=== PATIENT | female | born 1990 | race Caucasian/White ===

== ENCOUNTER 2019-04-28 17:17 | Emergency (ER) | payer SELFPAY ==
[2019-04-28 17:26] VITALS: BP 134/81; PULSE 88; RESP 16; TEMP 36.4; O2SAT 100; BMI 20.9
--- NOTE | 2019-04-28 17:54 | CTR_ITS ---
PROCEDURE INFORMATION: Exam: CT Head Without Contrast Exam date and time: 04/28/2019 6:24 PM Age: 29 years old Clinical indication: Pain; Other: Tingling; Headache TECHNIQUE: Imaging protocol: Computed tomography of the head without contrast. Total DLP: 761.13 mGy-cm Radiation optimization: All CT scans at this facility use at least one of these dose optimization techniques: automated exposure control; mA and/or kV adjustment per patient size (includes targeted exams where dose is matched to clinical indication); or iterative reconstruction. COMPARISON: No relevant prior studies available. FINDINGS: Brain: There is no evidence of infarct, cunningham-white matter differentiation is preserved. There is no hemorrhage or extra-axial collection. There is no mass. No evidence of subarachnoid hemorrhage. Ventricles: There is no hydrocephalus. Bones/joints: Series 3, image 42, well-defined 14 mm lucency in the left lateral calvarium. The appearance is nonspecific. The well-defined appearance indicates likely benign etiology such as epidermoid. No fracture. Sinuses: Visualized sinuses are unremarkable. No fluid levels. Mastoid air cells: Visualized mastoid air cells are well aerated. Soft tissues: Unremarkable. CT/CT head wo con* [id number] IMPRESSION: No intracranial lesion or injury. Radiation Dose CTDIVOL = (mGy): DLP = 761.13 (mGy-cm)
--- NOTE | 2019-04-28 17:55 | W.ED.HA ---
HPI - Headache General: Chief Complaint: Headache Stated Complaint: Headache,tinglling Time Seen by Provider: 04/28/19 17:39 History of Present Illness: HPI Narrative: Patient reports having a severe headache yesterday and then suddenly got tingly and very anxious late yesterday evening. Patient went to the ER in [place] and was evaluated and treated with Ativan for her anxiety. Patient denied any use of medications or drugs. Patient was given oxycodone last night and Ativan for her headache and anxiety at the emergency room in [place]. Patient appears anxious. Patient appears in mild to no pain. Patient denies any routine medications or medical problems. Patient denies depression or anxiety. Review of Systems General: Reports: 10 or more systems reviewed and unremarkable except in HPI and below Neuro: Reports: headache Psych: Reports: anxiety PFSH ED PFSH: Statuses (acute, chronic, etc) shown below reflect problem list status as previously entered and may not be historically accurate Social History Smoking and tobacco status: former smoker Female Reproductive History: Date of last menstrual period: 04/27/19 Physical Exam Const: COMMON NORMALS: no apparent distress and oriented x3 GENERAL APPEARANCE: cooperative HENMT: COMMON NORMALS: normocephalic, external ears normal, EAC's normal, TM's normal bilaterally and external nose normal HEAD & SCALP: normal to inspection and normocephalic FACE & SINUS: normal facial exam NOSE: external nose normal GENERAL EAR: hearing not grossly impaired EXTERNAL EAR: Yes external ears normal EXTERNAL AUDITORY CANAL: EAC's normal TYMPANIC MEMBRANE: TM's normal bilaterally MOUTH: oral and palatal mucosa normal THROAT: posterior oropharynx normal Eye: COMMON NORMALS: PERRL and EOMs intact bilaterally PUPIL: Yes PERRL Neck/C-Spine: COMMON NORMALS: full ROM and no lymphadenopathy Lymph: LYMPHATIC: no lymphedema noted Chest: COMMONS NORMALS: inspection of chest normal and palpation of chest normal Resp: COMMON NORMALS: normal respiratory effort and clear to auscultation bilaterally AUSCULTATION: clear to auscultation bilaterally Cardio: COMMON NORMALS: regular rate and regular rhythm RATE: regular rate RHYTHM: regular rhythm GI: COMMON NORMALS: normal to inspection, nondistended, normoactive bowel sounds and non-tender : COMMON NORMALS: Yes no CVA tenderness BLADDER/KIDNEY EXAM: Yes no CVA tenderness Back/Pelvis: COMMON NORMALS: no CVA tenderness and thoracic and lumbar spine normal to inspection Extremity: COMMON NORMALS: normal to inspection GENERAL: No edema Neuro: COMMON NORMALS: oriented x3, moves all extremities and no focal motor deficits Psych: COMMON NORMALS: mental status grossly normal and cooperative Skin: COMMON NORMALS: no rashes or lesions noted GENERAL SKIN EXAM: no rashes or lesions noted Course Vital Signs: Vital signs: Vital Signs Temperature 97.5 F L 04/28/19 17:26 Pulse Rate 83 04/28/19 20:43 Respiratory Rate 16 04/28/19 20:43 Blood Pressure 111/77 04/28/19 20:43 Pulse Oximetry 98 04/28/19 20:43 MDM - Headache MDM Narrative: Medical decision making narrative: Patient comes in today for complaints of tremors and headache. Patient reports symptoms were yesterday she was seen at [place] and was diagnosed with migraine headache and possible substance use. Exam notes no physical abnormalities. Respirations are even lungs are clear to auscultation. Skin is warm dry and color is pink. Vital signs are stable. Differential diagnosis includes anxiety, depression, substance abuse, migraine headache, tension headache, subarachnoid hemorrhage. CT scan of the head was negative for any abnormalities. Laboratory values indicated no significant abnormalities. Care was released to Ford Gracia, nurse practitioner, who graciously assumed care and released patient after urinalysis and drug screen. Differential Diagnosis: Differential diagnosis headache: Likely migraine, tension headache and subarachnoid hemorrhage Lab Data: Labs: Lab Results 04/28/19 04/28/19 04/28/19 Range/Units 18:18 18:18 18:18 WBC 5.0 (4.0-10.0) 10^3/ uL RBC 4.42 (4.1-5.3) 10^6/u L Hgb 13.2 (11.5-15.3) g/dL Hct 40.5 (37.0-47.0) % MCV 91.6 (81-99) fL MCH 29.9 (28.0-34.0) pg MCHC 32.6 (30.0-36.0) g/dL RDW 11.5 L (12.1-15.1) % Plt Count 215 (130-400) 10^3/c mm MPV 12.2 H (7.4-10.4) fL Neut % (Auto) 49.6 % Lymph % (Auto) 40.9 % [place] % (Auto) 7.3 % Eos % (Auto) 1.6 % Baso % (Auto) 0.4 % Neut # (Auto) 2.5 (1.8-7.7) 10^3/u L Lymph # (Auto) 2.0 (0.8-4.8) 10^3/u L [place] # (Auto) 0.4 (0.2-0.9) 10^3/u L Eos # (Auto) 0.1 (0.0-0.8) 10^3/u L Baso # (Auto) 0.0 (0.0-0.1) 10^3/u L Nucleated RBC % (a uto) 0 % Nucleated RBCs # 0.0 /100WBC Sodium 137 (136-145) mmol/L Potassium 4.0 (3.5-5.1) mmol/L Chloride 106 (98-107) mmol/L Carbon Dioxide 20 L (22-29) mmol/L Anion Gap 15.0 (5-19) BUN 10 (6-20) mg/dL Creatinine 0.9 (0.5-0.9) mg/dL GFR Calculation 73.5 L (90-130) mL/min Glucose 101 (74-109) mg/dL Calcium 9.9 (8.5-10.5) mg/dL Total Bilirubin 0.3 (0.15-1.2) mg/dL AST 12 (0-32) U/L ALT 9 (0-33) U/L Alkaline Phosphata se 39 (35-105) IU/L Total Protein 7.6 (6.6-8.7) g/dL Albumin 4.3 (3.5-5.2) g/dL Globulin 3.3 (1.3-4.6) g/dL TSH 2.24 (0.27-4.20) uIU/ mL HCG, Qual Negative (Negative) Urine Color (Yellow) Urine Appearance (CLEAR) Urine pH (5-7) Ur Specific Gravit y (1.005-1.030) Urine Protein (Negative) Urine Glucose (UA) (Normal) Urine Ketones (Negative) Urine Occult Blood (Negative) Urine Nitrate (Negative) Urine Bilirubin (NEGATIVE) Prot Sulfosalicyli c Acd Urine Urobilinogen (Negative) mg/dL Ur Leukocyte Aury ase (Negative) Urine RBC (0-2) /hpf Urine WBC (0-5) /hpf Ur Squamous Epith Cells (0-5) Urine Bacteria (NONE) Urine Opiates Scre en (Negative) ng/mL Ur Barbiturates Sc reen (Negative) ng/mL Ur Phencyclidine S crn (Negative) ng/mL Ur Amphetamines Sc reen (Negative) ng/mL U Benzodiazepines Scrn (Negative) ng/mL Urine Cocaine Scre en (Negative) ng/mL U Marijuana (THC) Screen (Negative) ng/mL Ethyl Alcohol < 10 (0-10) mg/dL 04/28/19 04/28/19 Range/Units 18:36 18:36 WBC (4.0-10.0) 10^3/ uL RBC (4.1-5.3) 10^6/u L Hgb (11.5-15.3) g/dL Hct (37.0-47.0) % MCV (81-99) fL MCH (28.0-34.0) pg MCHC (30.0-36.0) g/dL RDW (12.1-15.1) % Plt Count (130-400) 10^3/c mm MPV (7.4-10.4) fL Neut % (Auto) % Lymph % (Auto) % [place] % (Auto) % Eos % (Auto) % Baso % (Auto) % Neut # (Auto) (1.8-7.7) 10^3/u L Lymph # (Auto) (0.8-4.8) 10^3/u L [place] # (Auto) (0.2-0.9) 10^3/u L Eos # (Auto) (0.0-0.8) 10^3/u L Baso # (Auto) (0.0-0.1) 10^3/u L Nucleated RBC % (a uto) % Nucleated RBCs # /100WBC Sodium (136-145) mmol/L Potassium (3.5-5.1) mmol/L Chloride (98-107) mmol/L Carbon Dioxide (22-29) mmol/L Anion Gap (5-19) BUN (6-20) mg/dL Creatinine (0.5-0.9) mg/dL GFR Calculation (90-130) mL/min Glucose (74-109) mg/dL Calcium (8.5-10.5) mg/dL Total Bilirubin (0.15-1.2) mg/dL AST (0-32) U/L ALT (0-33) U/L Alkaline Phosphata se (35-105) IU/L Total Protein (6.6-8.7) g/dL Albumin (3.5-5.2) g/dL Globulin (1.3-4.6) g/dL TSH (0.27-4.20) uIU/ mL HCG, Qual (Negative) Urine Color Yellow (Yellow) Urine Appearance Cloudy (CLEAR) Urine pH 8 H (5-7) Ur Specific Gravit y 1.010 (1.005-1.030) Urine Protein Neg (Negative) Urine Glucose (UA) Norm (Normal) Urine Ketones Negative (Negative) Urine Occult Blood 3+ H (Negative) Urine Nitrate Negative (Negative) Urine Bilirubin Neg (NEGATIVE) Prot Sulfosalicyli c Acd Negative Urine Urobilinogen Norm (Negative) mg/dL Ur Leukocyte Aury ase Negative (Negative) Urine RBC 15-25 H (0-2) /hpf Urine WBC 0-4 H (0-5) /hpf Ur Squamous Epith Cells 10-15 H (0-5) Urine Bacteria 1+ H (NONE) Urine Opiates Scre en Negative (Negative) ng/mL Ur Barbiturates Sc reen Negative (Negative) ng/mL Ur Phencyclidine S crn Negative (Negative) ng/mL Ur Amphetamines Sc reen Negative (Negative) ng/mL U Benzodiazepines Scrn Negative (Negative) ng/mL Urine Cocaine Scre en Negative (Negative) ng/mL U Marijuana (THC) Screen Negative (Negative) ng/mL Ethyl Alcohol (0-10) mg/dL Discharge Plan Discharge Patient Disposition: Home, Self-Care Clinical Impression: Headache Qualifiers: Headache type: other drug induced headache Intractability: intractable Qualified Code(s): G44.41 - Drug-induced headache, not elsewhere classified, intractable Condition: Stable Discharge Orders: Discharge Order (Routine); Ordered 04/28/19 Ordered By: Placido Gracia Discharge Diet: Usual diet Discharge Activity: Increase activity as tolerated Patient Instructions: Acute Delirium (ED) Activity Restrictions/Additional Instructions: Follow-up with medical provider as directed. Return to the ER or your medical provider if condition worsens. Please read and understand discharge instructions. If any questions ask please. Follow-up with Andrés if further drug testing is appropriate and desired. Discharge Date/Time: 04/28/19 20:40 Coding Level of Care Code ED [employer] Shift Manager for Steven Fwdevon Exam Problem Focused
[2019-04-28 18:26] LABS: Basophils % 0.4 %; Eosinophils # 0.1 10^3/uL (0.0-0.8); Eosinophils % 1.6 %; Hematocrit 40.5 % (37.0-47.0); Hemoglobin 13.2 g/dL (11.5-15.3); Lymphocytes % 40.9 %; Mean Corpuscular HGB Conc 32.6 g/dL (30.0-36.0); Mean Corpuscular Hemoglobin 29.9 pg (28.0-34.0); Mean Corpuscular Volume 91.6 fL (81-99); Mean Platelet Volume 12.2 fL (7.4-10.4); Monocytes # 0.4 10^3/uL (0.2-0.9); Monocytes % 7.3 %; Neutrophils # 2.5 10^3/uL (1.8-7.7); Neutrophils % 49.6 %; Nucleated Red Blood Cells % 0 %; Platelet Count 215 10^3/cmm (130-400); Red Blood Count 4.42 10^6/uL (4.1-5.3); Red Cell Distribution Width 11.5 % (12.1-15.1)
[2019-04-28 18:53] LABS: Alanine Aminotransferase 9 U/L (0-33); Albumin Level 4.3 g/dL (3.5-5.2); Alkaline Phosphatase 39 IU/L (35-105); Aspartate Amino Transferase 12 U/L (0-32); Blood Urea Nitrogen 10 mg/dL (6-20); Calcium 9.9 mg/dL (8.5-10.5); Carbon Dioxide 20 mmol/L (22-29); Chloride 106 mmol/L (98-107); Globulin 3.3 g/dL (1.3-4.6); Glomerular Filtration Rate 73.5 mL/min (90-130); Glucose 101 mg/dL (74-109); Sodium 137 mmol/L (136-145); Thyroid Stimulating Hormone 2.24 uIU/mL (0.27-4.20); Total Bilirubin 0.3 mg/dL (0.15-1.2); Total Protein 7.6 g/dL (6.6-8.7)
[2019-04-28 18:55] LABS: Alcohol Level < 10 mg/dL (0-10); HCG, Serum Qual Negative (Negative)
[2019-04-28 19:23] LABS: Urine Appearance Cloudy (CLEAR); Urine Color Yellow (Yellow); pH Urine 8 (5-7)
[2019-04-28 19:24] LABS: Bacteria Urine 1+; Bilirubin Urine Neg (NEGATIVE); Blood Urine 3+ (Negative); Glucose Urine UA Norm (Normal); Ketones Urine Negative (Negative); Leukocyte Esterase Urine Negative (Negative); Nitrate Urine Negative (Negative); Protein Urine Neg (Negative); RBC Urine 15-25 /hpf (0-2); Sulfosalicylic Acid Urine Negative; Urobilinogen Urine Norm (Negative); WBC Urine 0-4 /hpf (0-5)
[2019-04-28 19:43] LABS: Amphetamines Screen Urine Negative (Negative); Barbiturates Screen Urine Negative (Negative); Benzodiazepines Screen Urine Negative (Negative); Cocaine Screen Urine Negative (Negative); Opiate Screen Urine Negative (Negative); PCP Screen Urine Negative (Negative); THC Screen Urine Negative (Negative)
[2019-04-28 20:43] VITALS: BP 111/77; PULSE 83; RESP 16; O2SAT 98
== END 2019-04-28 20:40 | disposition home or self-care (01) ==
PROVIDERS: Emergency Provider Nurse Practitioner Family
DX: G44.41 Drug-induced headache, not elsewhere classified, intractable (principal); Z87.891 Personal history of nicotine dependence
CPT/HCPCS: 70450; 80053; 80307; 81001; 84443; 84703; 85025; 99282

== ENCOUNTER → 2021-10-21 08:54 | Outpatient (BNVA) | payer BC, MEDICAID, SELFPAY | PROVIDERS: Visit Provider Obstetrics & Gynecology | DX: Z12.4 Encounter for screening for malignant neoplasm of cervix (principal); N89.8 Other specified noninflammatory disorders of vagina | CPT/HCPCS: 87624 ==

== ENCOUNTER → 2021-11-18 10:06 | Outpatient (BNVA) | payer BC, MEDICAID, SELFPAY | PROVIDERS: Visit Provider Obstetrics & Gynecology | DX: R87.619 Unspecified abnormal cytological findings in specimens from cervix uteri (principal) | CPT/HCPCS: 88305 ==

== ENCOUNTER → 2022-05-22 16:40 | Outpatient (BNVA) | payer BC, MEDICAID, SELFPAY | PROVIDERS: Visit Provider Obstetrics & Gynecology | DX: R87.610 Atypical squamous cells of undetermined significance on cytologic smear of cervix (ASC-US) (principal); R87.810 Cervical high risk human papillomavirus (HPV) DNA test positive | CPT/HCPCS: 87624 ==

== ENCOUNTER → 2022-07-02 13:18 | Outpatient (BNVA) | payer BC, MEDICAID, SELFPAY | PROVIDERS: Visit Provider Obstetrics & Gynecology | DX: R87.619 Unspecified abnormal cytological findings in specimens from cervix uteri (principal) | CPT/HCPCS: 88305; 88342 ==

== ENCOUNTER 2022-09-22 09:45 | Outpatient (CLI) | payer BC, MEDICAID, SELFPAY ==
--- NOTE | 2022-09-22 10:00 | CT_ITS ---
WS: [id number] CT HEAD NONCONTRAST HISTORY: R51.9 - Headache, unspecified TECHNIQUE: Contiguous axial imaging performed through the brain in 2.5 mm imaging. Bone and soft tiss ue windows. Sagittal and coronal reformats reviewed. All CT scans at [facility] use at least one of these dose optimization techniques: automated exposure control; mA and/or kV adjustment per pa tient size (includes targeted exams where dose is matched to clinical indication); or iterative recon struction. DLP: 952.86 mGy.cm COMPARISON: 04/28/2019 No acute intracranial hemorrhage, midline shift or mass effect. No atrophy or prior infarcts or herniation. Ventricles: Normal size with no hydrocephalus. Paranasal sinuses: As visualized are clear. Mastoid air cells: Well pneumatized. Calvarium and scalp: Skull is intact with no soft tissue edema or swelling. CT/CT head wo con* [id number] IMPRESSION: Negative head CT.
== END 2022-09-22 09:46 | disposition home or self-care (01) ==
LOC: RAD 09:48
PROVIDERS: PCP Registered Nurse; Visit Provider Registered Nurse
DX: R51.9 Headache, unspecified (principal)
CPT/HCPCS: 70450

== ENCOUNTER → 2022-10-01 10:08 | Outpatient (BNVA) | payer BC, MEDICAID, SELFPAY | PROVIDERS: PCP Registered Nurse; Visit Provider Registered Nurse | DX: R51.9 Headache, unspecified (principal) | CPT/HCPCS: 80053; 82607; 84443; 85025; 86140 ==

== ENCOUNTER → 2023-01-01 14:00 | Outpatient (BNVA) | payer BC, MEDICAID, SELFPAY | PROVIDERS: PCP Registered Nurse; Visit Provider Nurse Practitioner Women's Health | DX: Z87.42 Personal history of other diseases of the female genital tract (principal) | CPT/HCPCS: 87624 ==